=== PATIENT | female | born 1945 | race Caucasian/White ===

== ENCOUNTER 2017-02-13 19:09 | Emergency (ER) | payer OTHER ==
[~2017-02-13] VITALS: Ht 167.6 cm; Wt 65.8 kg
== END 2017-02-13 21:19 | disposition home or self-care (01) ==
LOC: ED 19:09
DX: S61.012A Laceration without foreign body of left thumb without damage to nail, initial encounter (principal); W26.0XXA Contact with knife, initial encounter; Y93.89 Activity, other specified; Y92.89 Other specified places as the place of occurrence of the external cause; Y99.8 Other external cause status

== ENCOUNTER 2018-03-20 15:04 | Emergency (ER) | payer OTHER ==
[~2018-03-20] VITALS: Ht 167.6 cm; Wt 68.0 kg
--- NOTE | ~2018-03-20 | EKG ---
[place], [place] ELECTROCARDIOGRAM REPORT NAME: LIAN FLORES UNIT #: [id number] ROOM: DOCTOR: EPIPHANY DRAFT REPORT BIRTHDATE: [birth year] [facility] Test Date: 2018-03-20 Test Time: 15:13:25 Pat Name: LIAN FLORES Department: Room: Gender: F Product Specialist: : 1945 Requested By: YARIEL GRAF Order Number: [id number] Reading MD: Patrick Troy MD Measurements Intervals [place] Rate: 95 P: 61 WI: 157 QRS: 40 QRSD: 87 T: 94 QT: 371 QTc: 467 Interpretive Statements Sinus rhythm Anteroseptal infarct, acute (LAD) Electronically Signed On 03-20-2018 20:41:28 PDT by Patrick Troy MD CM:EKGRPT:ELECTROCARDIOGRAM REPORT 1513 YARIEL VALENCIA DRAFT REPORT YARIEL GRAF M.D.
[2018-03-20 15:52] LABS: BASO # 0.1 10*3/uL (0.0-0.1); BASO % 0.5 % (0.0-1.0); EOS % 0.1 % (1.0-4.0); HEMATOCRIT 47.6 % (37.0-47.0); HEMOGLOBIN 15.8 g/dl (12.0-16.0); LYMPH # 1.4 10*3/uL (1.3-4.4); LYMPH % 14.1 % (27.0-41.0); MEAN CELL VOLUME 86.7 fl (81.0-99.0); MEAN CORPUSCULAR HGB 28.8 pg (27.0-31.0); MEAN CORPUSCULAR HGB CONC 33.2 g/dl (33.0-37.0); MEAN PLATELET VOLUME 9.4 fl (9.6-12.3); MONO # 0.8 10*3/uL (0.1-1.0); MONO % 7.4 % (3.0-9.0); NEUT # 7.9 10*3/uL (2.3-7.9); NEUT % 77.6 % (47.0-73.0); PLATELET COUNT AUTOMATED 232 10*3/uL (130-400); RED BLOOD COUNT 5.49 10*6/uL (4.10-5.10); RED CELL DISTRI WIDTH 13.7 % (0-14.5); WHITE BLOOD COUNT 10.2 10*3/uL (4.8-10.8)
[2018-03-20 16:01] LABS: ACT PARTIAL THROMBO TIME 23.8 SECONDS (20.8-31.5)
[2018-03-20 16:09] LABS: ALKALINE PHOSPHATASE 75 U/L (45-117); BUN 10 mg/dl (7-24); CHLORIDE 101 mmol/L (98-107); POTASSIUM 3.2 mmol/L (3.5-5.1); SGOT/AST 85 IU/L (3-35); SGPT/ALT 37 U/L (12-78); SODIUM 140 mmol/L (136-145); TOTAL PROTEIN 8.5 gm/dL (6.4-8.2)
== END 2018-03-20 15:58 | disposition short-term general hospital (02) ==
LOC: ED 15:04
PROVIDERS: Emergency Medicine
DX: I21.9 Acute myocardial infarction, unspecified (principal)

== ENCOUNTER 2018-04-01 14:46 | Inpatient (IN) | payer OTHER ==
[2018-04-01] VITALS (25 sets, daily range): BP systolic 114–222; BP diastolic 41–98
[~2018-04-01] VITALS: Ht 167.6 cm; Wt 65.9 kg
--- NOTE | ~2018-04-01 | EKG ---
[place], [place] ELECTROCARDIOGRAM REPORT NAME: LIAN FLORES UNIT #: [id number] ROOM: [facility] DOCTOR: ERIK DRAFT REPORT BIRTHDATE: [birth year] [facility] Test Date: 2018-04-01 Test Time: 18:31:53 Pat Name: LIAN FLORES Department: Room: [place] [address] Gender: F Union Contract Representative: : 1945 Requested By: ANIA NEVILLE Order Number: [id number] Reading MD: Patrick Troy MD Measurements Intervals [place] Rate: 59 P: 63 AK: 127 QRS: 41 QRSD: 101 T: -89 QT: 558 QTc: 553 Interpretive Statements Sinus rhythm Anteroseptal infarct, age indeterminate Lateral leads are also involved Prolonged QT interval Baseline wander in lead(s) I Compared to ECG 03/20/2018 15:13:25 Myocardial infarct finding still present Electronically Signed On 04-02-2018 15:48:55 PDT by Patrick Troy MD CM:EKGRPT:ELECTROCARDIOGRAM REPORT [id number] 1548 ANIA HARRIS DRAFT REPORT ANIA NEVILLE DO
--- NOTE | ~2018-04-01 | EKG ---
[place], [place] ELECTROCARDIOGRAM REPORT NAME: LIAN FLORES UNIT #: [id number] ROOM: [facility] DOCTOR: ERIK DRAFT REPORT BIRTHDATE: [birth year] [facility] Test Date: 2018-04-01 Test Time: 21:34:45 Pat Name: LIAN FLORES Department: Room: [place] [address] Gender: F [place] Can Worker: Olena Lama : 1945 Requested By: ANIA NEVILLE Order Number: [id number] Reading MD: Patrick Troy MD Measurements Intervals [place] Rate: 59 P: 60 MA: 123 QRS: 49 QRSD: 97 T: 193 QT: 573 QTc: 568 Interpretive Statements Sinus rhythm Anteroseptal infarct, age indeterminate Prolonged QT interval Compared to ECG 03/20/2018 15:13:25 Prolonged QT interval now present Myocardial infarct finding still present Electronically Signed On 04-02-2018 15:50:12 PDT by Patrick Troy MD CM:EKGRPT:ELECTROCARDIOGRAM REPORT 1550 ANIA HARRIS DRAFT REPORT ANIA NEVILLE DO
--- NOTE | ~2018-04-01 | EKG ---
[place], [place] ELECTROCARDIOGRAM REPORT NAME: LIAN FLORES UNIT #: [id number] ROOM: [facility] DOCTOR: ERIK DRAFT REPORT BIRTHDATE: [birth year] [facility] Test Date: 2018-04-02 Test Time: 01:02:08 Pat Name: LIAN FLORES Department: ICU Room: [place] [address] Gender: F Identity Management Developer: Harish Gunter : 1945 Requested By: ANIA NEVILLE Order Number: [id number] Reading MD: Patrick Troy MD Measurements Intervals [place] Rate: 69 P: 51 [place]: 151 QRS: 50 QRSD: 98 T: 58 QT: 531 QTc: 569 Interpretive Statements Sinus rhythm Anteroseptal infarct, age indeterminate Prolonged QT interval Compared to ECG 03/20/2018 15:13:25 Prolonged QT interval now present Myocardial infarct finding still present Electronically Signed On 04-02-2018 15:52:04 PDT by Patrick Troy MD CM:EKGRPT:ELECTROCARDIOGRAM REPORT 1552 ANIA HARRIS DRAFT REPORT ANIA NEVILLE DO
--- NOTE | ~2018-04-01 | EKG ---
[place], [place] ELECTROCARDIOGRAM REPORT NAME: LIAN FLORES UNIT #: [id number] ROOM: [facility] DOCTOR: EPIPHANY DRAFT REPORT BIRTHDATE: [birth year] [facility] Test Date: 2018-04-01 Test Time: 14:57:41 Pat Name: LIAN FLORES Department: Room: [facility] Gender: F Machine Installer: : 1945 Requested By: YENY PARRA Order Number: [id number] Reading MD: Patrick Troy MD Measurements Intervals [place] Rate: 64 P: 62 AR: 133 QRS: 34 QRSD: 103 T: 54 QT: 493 QTc: 509 Interpretive Statements Sinus rhythm Anteroseptal infarct, age indeterminate Lateral leads are also involved Prolonged QT interval Compared to ECG 03/20/2018 15:13:25 Prolonged QT interval now present Myocardial infarct finding still present Electronically Signed On 04-02-2018 15:47:30 PDT by Patrick Troy MD CM:EKGRPT:ELECTROCARDIOGRAM REPORT 1457 1547 YENY PARRA EPIPHANY DRAFT REPORT YENY PARRA
[2018-04-01] MEDS ORDERED: LISINOPRIL5 MG PO (14:59)
[2018-04-01] MEDS ORDERED: CARVEDILOL3.125 MG PO (15:00)
[2018-04-01] MEDS ORDERED: ATORVASTATIN CA40 M1 PO (15:00)
[2018-04-01] MEDS ORDERED: NITROGLYCERIN0.4 MG SL (15:00)
[2018-04-01] MEDS ORDERED: BRILINTA90 M1 PO (15:01)
[2018-04-01 15:37] LABS: BASO % 0.5 % (0.0-1.0); EOS # 0.1 10*3/uL (0.0-0.4); EOS % 1.6 % (1.0-4.0); HEMATOCRIT 39.8 % (37.0-47.0); HEMOGLOBIN 12.9 g/dl (12.0-16.0); LYMPH # 1.2 10*3/uL (1.3-4.4); LYMPH % 14.3 % (27.0-41.0); MEAN CELL VOLUME 88.8 fl (81.0-99.0); MEAN CORPUSCULAR HGB 28.8 pg (27.0-31.0); MEAN CORPUSCULAR HGB CONC 32.4 g/dl (33.0-37.0); MEAN PLATELET VOLUME 9.2 fl (9.6-12.3); MONO # 0.6 10*3/uL (0.1-1.0); MONO % 7.3 % (3.0-9.0); NEUT # 6.3 10*3/uL (2.3-7.9); NEUT % 76.1 % (47.0-73.0); PLATELET COUNT AUTOMATED 286 10*3/uL (130-400); RED BLOOD COUNT 4.48 10*6/uL (4.10-5.10); RED CELL DISTRI WIDTH 13.7 % (0-14.5); WHITE BLOOD COUNT 8.2 10*3/uL (4.8-10.8)
[2018-04-01 15:51] LABS: ALBUMIN 3.5 gm/dl (3.1-4.5); ALKALINE PHOSPHATASE 92 U/L (45-117); BUN 13 mg/dl (7-24); CHLORIDE 106 mmol/L (98-107); CREATININE 0.75 mg/dL (0.55-1.02); POTASSIUM 3.6 mmol/L (3.5-5.1); SGOT/AST 14 IU/L (3-35); SGPT/ALT 24 U/L (12-78); SODIUM 141 mmol/L (136-145); TOTAL PROTEIN 8.3 gm/dL (6.4-8.2)
[2018-04-01] MEDS ORDERED: ASPIRIN ADULT L81 M2 PO (17:58)
[2018-04-02] VITALS: BP 155/59
[2018-04-02 04:00] VITALS: BP 119/56
[2018-04-02 04:25] LABS: BASO # 0.1 10*3/uL (0.0-0.1); BASO % 0.7 % (0.0-1.0); EOS # 0.2 10*3/uL (0.0-0.4); EOS % 2.2 % (1.0-4.0); HEMOGLOBIN 12.1 g/dl (12.0-16.0); LYMPH # 1.8 10*3/uL (1.3-4.4); MEAN CELL VOLUME 88.5 fl (81.0-99.0); MEAN CORPUSCULAR HGB 28.9 pg (27.0-31.0); MEAN CORPUSCULAR HGB CONC 32.7 g/dl (33.0-37.0); MEAN PLATELET VOLUME 9.1 fl (9.6-12.3); MONO # 0.5 10*3/uL (0.1-1.0); MONO % 6.4 % (3.0-9.0); NEUT # 5.1 10*3/uL (2.3-7.9); NEUT % 66.4 % (47.0-73.0); PLATELET COUNT AUTOMATED 261 10*3/uL (130-400); RED BLOOD COUNT 4.18 10*6/uL (4.10-5.10); RED CELL DISTRI WIDTH 13.8 % (0-14.5); WHITE BLOOD COUNT 7.7 10*3/uL (4.8-10.8)
[2018-04-02 04:40] LABS: ALBUMIN 2.9 gm/dl (3.1-4.5); ALKALINE PHOSPHATASE 77 U/L (45-117); BUN 16 mg/dl (7-24); CHLORIDE 107 mmol/L (98-107); CHOLESTEROL 140 mg/dL (<200); CREATININE 0.64 mg/dL (0.55-1.02); FREE T4 1.38 ng/dl (0.76-1.46); HDL CHOLESTEROL 36 mg/dl (40-60); LDL CHOLESTEROL 88 mg/dL (9-159); PHOSPHOROUS 3.8 mg/dL (2.5-4.9); POTASSIUM 3.3 mmol/L (3.5-5.1); SGOT/AST 5 IU/L (3-35); SGPT/ALT 20 U/L (12-78); SODIUM 141 mmol/L (136-145); TRIGLYCERIDES 78 mg/dl (<150); VLDL CHOLESTEROL 16 mg/dL (6-40)
[2018-04-02 06:25] LABS: ACT PARTIAL THROMBO TIME 24.7 SECONDS (20.8-31.5)
[2018-04-02 06:39] LABS: VITAMIN D, 25-HYDROXY 26.4 ng/mL (30-100)
[2018-04-02 08:00] VITALS: BP 120/58
[2018-04-02 12:00] VITALS: BP 142/62
[2018-04-02 16:00] VITALS: BP 152/53
[2018-04-02] MEDS ORDERED: VITAMIN D-32000 UNIT PO (16:41)
[2018-04-02 16:52] VITALS: BP 160/68
== END 2018-04-02 19:00 | disposition home or self-care (01) | DRG 305 ==
LOC: ED 14:46 → EDHOLD 16:45 → ICCU 16:45 → 4E 17:03 → ICCU 17:07
PROVIDERS: Emergency Medicine; Internal Medicine
DX: I16.0 Hypertensive urgency (principal); E44.0 Moderate protein-calorie malnutrition; I25.10 Atherosclerotic heart disease of native coronary artery without angina pectoris; E78.5 Hyperlipidemia, unspecified; D72.810 Lymphocytopenia; E87.6 Hypokalemia; E83.41 Hypermagnesemia; Z79.82 Long term (current) use of aspirin; I25.2 Old myocardial infarction; Z83.6 Family history of other diseases of the respiratory system; Z79.899 Other long term (current) drug therapy; Z68.23 Body mass index [BMI] 23.0-23.9, adult